=== PATIENT | female | born 1955 | race Caucasian/White ===

== ENCOUNTER → 2017-02-12 | Outpatient (CLI) | payer BC ==
[~2017-02-12] MED LIST: CALC-338 PO; CHOL100010 PO; COEN1CAP37 PO; GLUC1TAB94 PO; LYSI500C2 PO; MAGN250T3 PO; MULTTAB45 PO
== END | disposition home or self-care (01) ==
LOC: C.LABBC 15:13
DX: M81.0 Age-related osteoporosis without current pathological fracture (principal)

== ENCOUNTER 2017-03-12 13:02 | Emergency (ER) | payer BC ==
[~2017-03-12] VITALS: Ht 165.1 cm; Wt 58.0 kg
[~2017-03-12 13:02] MED LIST changes: -CHOL100010 PO; -GLUC1TAB94 PO; -MAGN250T3 PO
[2017-03-12 13:05] VITALS: TEMP 36.6; Ht 165.1 cm; Wt 58.0 kg
[2017-03-12 13:22] VITALS: O2SAT 96
[2017-03-12] MEDS ORDERED: GLUC1TAB94 PO (13:24)
[2017-03-12] MEDS ORDERED: CHOL100010 PO (13:24)
[2017-03-12] MEDS ORDERED: MAGN250T3 PO (13:24)
--- NOTE | 2017-03-12 13:29 | EMERGENCY ROOM VISIT NOTE ---
History First contact with patient: 13:07 Chief Complaint: CHEST PAIN Stated Complaint: CHEST PAIN AND PRESSURE Nursing Triage Summary: Triage note: pt reports chest tightness and heaviness since 0400 today. pt reports shortness of breath. History of Present Illness The patient is a 62 year old female who presents to the Emergency Room with complaints of chest pain. The patient states that in the middle of the night last night, she developed a sharp pain in the center of her chest which woke her up from sleep. She states the pain radiated into the left side of the chest. She took a baby aspirin and went back to bed, but states that she still "didn't feel right." She states that when she had the pain, and was worse with a deep breath. It did not radiate into her jaw or arm. She states that when she woke up 2 hours later, the pain had resolved. She states that she still has a heavy feeling in the center of her chest. She denies any shortness of breath at this time, but does state that she is nervous to take a deep breath because she is afraid the pain will return. The patient states that she has a history of arrhythmia but is unsure what this arrhythmia is. She denies any significant medical problems and does not take any medications on a daily basis. She states that her father had congenital heart disease and had a heart attack in his 80s. She denies any history of heart disease in her mother's side of the family. She does not smoke. She denies any nausea/vomiting, diaphoresis, abdominal pain, fevers or recent illness. Review of Systems A complete 10 point review of systems was reviewed with the patient with pertinent positives and negatives as per history of present illness. All else were negative. Past Medical/Surgical History Medical Problems: (1) Facial contusion (2) Hyperlipidemia Nec/Nos Family History Cancer Heart disease Social History Smoking Status: Never Smoker Marital Status: Housing Status: lives with family Current/Historical Medications Scheduled Calcium Citrate-Vitamin D (Citracal/Vitamin D), 1 TAB PO QAM Cholecalciferol (Vitamin D), 1,000 INTER.UNIT PO QAM Coenzyme Q10 (Ubidecarenone) (Co Q-10), 200 MG PO QAM Bxnvtuelbvo-Oxgmtkikrju-Hrbkbn (Move Free Joint Health Ad), 1 TAB PO DAILY Lysine (Lysine), 500 MG PO QAM Magnesium (Magnesium 250 mg), 250 MG PO QAM Multiple Vitamin (Multiple Vitamin), 1 TAB PO QAM Allergies Coded Allergies: Morphine (Verified Allergy, Unknown, VOMITING, 03/12/17) Physical Exam Vital Signs Date Time Temp Pulse Resp B/P Pulse Ox O2 Delivery O2 Flow Rate FiO2 03/12/17 15:22 86 20 126/78 98 Room Air 03/12/17 14:23 80 18 117/76 97 Room Air 03/12/17 13:22 96 Room Air 03/12/17 13:17 82 03/12/17 13:05 36.6 84 18 142/78 96 Room Air Physical Exam VITALS: Vitals are noted on the nurse's note and reviewed by myself. Vital signs stable. GENERAL: This is a 62-year-old female, in no acute distress, nondiaphoretic, well-developed well-nourished. SKIN: Capillary reflex less than 2 seconds. HEENT: Normocephalic. PERRLA. EOMI. Nares patent. Mucous membranes moist. Neck is supple without nuchal rigidity. HEART: Regular rate and rhythm without murmurs gallops or rubs. LUNGS: Clear to auscultation bilaterally without wheezes, rales or rhonchi. No retractions or accessory muscle use. MUSCULOSKELETAL: No reproducible tenderness on palpation. NEURO: Patient was alert and oriented to person place and time. Medical Decision & Procedures ER Provider Diagnostic Interpretation: CHEST ONE VIEW PORTABLE CLINICAL HISTORY: chest pain dyspnea COMPARISON STUDY: 08/30/2014 FINDINGS: The bones soft tissues and hemidiaphragms are normal. The cardiomediastinal silhouette is normal. The lungs are clear. The pulmonary vasculature is normal. IMPRESSION: Negative chest. Laboratory Results 03/12/17 13:15 Red Blood Count 4.45, Mean Corpuscular Volume 93.3, Mean Corpuscular Hemoglobin 32.1, Mean Corpuscular Hemoglobin Concent 34.5, Mean Platelet Volume 9.9, Neutrophils (%) (Auto) 59.3, Lymphocytes (%) (Auto) 30.8, Monocytes (%) (Auto) 7.9, Eosinophils (%) (Auto) 1.1, Basophils (%) (Auto) 0.7, Neutrophils # (Auto) 3.30, Lymphocytes # (Auto) 1.71, Monocytes # (Auto) 0.44, Eosinophils # (Auto) 0.06, Basophils # (Auto) 0.04 03/12/17 13:15 Test 03/12/17 13:15 03/12/17 13:21 03/12/17 14:53 White Blood Count 5.56 K/uL (4.8-10.8) Red Blood Count 4.45 M/uL (4.2-5.4) Hemoglobin 14.3 g/dL (12.0-16.0) Hematocrit 41.5 % (37-47) Mean Corpuscular Volume 93.3 fL (80-100) Mean Corpuscular Hemoglobin 32.1 pg (25-34) Mean Corpuscular Hemoglobin Concent 34.5 g/dl (32-36) Platelet Count 220 K/uL (130-400) Mean Platelet Volume 9.9 fL (7.4-10.4) Neutrophils (%) (Auto) 59.3 % Lymphocytes (%) (Auto) 30.8 % Monocytes (%) (Auto) 7.9 % Eosinophils (%) (Auto) 1.1 % Basophils (%) (Auto) 0.7 % Neutrophils # (Auto) 3.30 K/uL (1.4-6.5) Lymphocytes # (Auto) 1.71 K/uL (1.2-3.4) Monocytes # (Auto) 0.44 K/uL (0.11-0.59) Eosinophils # (Auto) 0.06 K/uL (0-0.5) Basophils # (Auto) 0.04 K/uL (0-0.2) RDW Standard Deviation 44.1 fL (36.4-46.3) RDW Coefficient of Variation 12.9 % (11.5-14.5) Immature Granulocyte % (Auto) 0.2 % Immature Granulocyte # (Auto) 0.01 K/uL (0.00-0.02) Prothrombin Time 10.5 SECONDS (9.0-12.0) Prothromb Time International Ratio 1.0 (0.9-1.1) Activated Partial Thromboplast Time 27.1 SECONDS (21.0-31.0) Partial Thromboplastin Ratio 1.0 Anion Gap 6.0 mmol/L (3-11) Est Creatinine Clear Calc Drug Dose 68.2 ml/min Estimated GFR () 96.8 Estimated GFR (Non- 83.5 BUN/Creatinine Ratio 19.4 (10-20) Calcium Level 8.8 mg/dl (8.5-10.1) Total Bilirubin 0.5 mg/dl (0.2-1) Aspartate Amino Transf (AST/SGOT) 14 U/L (15-37) Alanine Aminotransferase (ALT/SGPT) 25 U/L (12-78) Alkaline Phosphatase 44 U/L (45-117) Total Creatine Kinase 92 U/L (26-192) Creatine Kinase MB 1.4 ng/ml (0.5-3.6) Creatine Kinase MB Ratio 1.5 (0-3.0) Total Protein 6.9 gm/dl (6.4-8.2) Albumin 3.8 gm/dl (3.4-5.0) Globulin 3.1 gm/dl (2.5-4.0) Albumin/Globulin Ratio 1.2 (0.9-2) Bedside D-Dimer 226 ng/mlFEU (0-450) Bedside Troponin I 0.000 ng/ml (0-0.045) ECG Rate (beats per minute): 82 Rhythm: normal sinus Findings: no acute ischemic change, no ectopy Change: no significant change (no significant change from 07/13) ED Course The patient was evaluated as above. Labs were drawn and IV access was obtained. Patient was reevaluated and findings were discussed. I had a lengthy discussion with the patient regarding her findings and treatment plan. The patient would like to be discharged home if possible. Discharge instructions were reviewed with the patient. The patient verbalized understanding of my assessment and treatment plan and was discharged home in good condition. Medical Decision Differential diagnosis includes acute coronary syndrome, pulmonary embolism, pneumothorax, pericarditis, myocarditis, endocarditis, anxiety, musculoskeletal pain, GERD, costochondritis, pneumonia, among others. The patient is a 62-year-old female who presents today complaining of chest pain which has resolved. Labs revealed no leukocytosis, anemia or concerning electrolyte abnormalities. Thrhu-ax-lvlo troponin was negative. Troponin 2 were negative. Chest x-ray was unremarkable. EKG showed no acute ischemic changes. Other than the patient's age, she has no significant risk factors for cardiac disease. Her symptoms occurred fairly early this morning and I certainly would expect an elevation of the troponin is a were due to acute coronary syndrome. I do feel that the patient should have a stress test, but it is reasonable that this be performed as an outpatient. The patient will like to be discharged home and I think this is fine if the patient will follow-up with primary care provider within 48 hours. The patient was agreeable to this. The patient's case was reviewed with Dr. Jeff, ED attending physician, who agreed with my assessment and treatment plan. Based on the patient's presentation and work up, I feel the patient is stable for outpatient treatment. The patient was educated to return to the emergency department for any worsening of their current condition or new/concerning symptoms. She will follow up with her PCP for further testing. Impression Primary Impression: Retrosternal chest pain Departure Information Dispostion Home / Self-Care Condition GOOD Referrals Reinaldo Donis Jr,D.O. (PCP) Patient Instructions My [facility] Additional Instructions You have been treated in the Emergency Department for your Chest Pain. Laboratory results and Imaging Studies have ruled out any acute cardiac or pulmonary cause of your chest pain. For pain control, you can use the following jdbd-dfr-haddrpg medicines (if >12 yo): - Regular strength (325mg/tab) Tylenol (acetaminophen) 2 tabs every 4-6 hours as needed. Do not exceed 12 tablets in a 24 hour period. Avoid taking more than 4 grams (4000 mg) of Tylenol per day. This includes any other sources of acetaminophen you may take on a regular basis. - Regular strength (200 mg/tab) Advil (ibuprofen) 1-2 tabs every 4-6 hours as needed. Do not exceed a dose of 3[address] mg per day[address] Dr. Donis today or tomorrow to schedule follow up and a stress test. Return to the Emergency Department if your current symptoms worsen despite treatment course outlined above, or if you develop any of the following symptoms : worsening chest pain, associated jaw/arm pain, nausea, dizziness, shortness of breath, bloody cough, or fainting.
[2017-03-12 13:48] LABS: BASO % 0.7 %; BASO ABS # 0.04 K/uL (0-0.2); COMPLETE YES; EOS % 1.1 %; HEMATOCRIT 41.5 % (37-47); IG% 0.2 %; LYMPH % 30.8 %; LYMPH ABS # 1.71 K/uL (1.2-3.4); MEAN CELL VOLUME 93.3 fL (80-100); MEAN CORPUSCULAR HEMOGLOBIN 32.1 pg (25-34); MEAN CORPUSCULAR HGB CONC 34.5 g/dl (32-36); MEAN PLATELET VOLUME 9.9 fL (7.4-10.4); MONO % 7.9 %; NEUT % 59.3 %; PLATELET COUNT 220 K/uL (130-400); RED BLOOD COUNT 4.45 M/uL (4.2-5.4); WHITE BLOOD COUNT 5.56 K/uL (4.8-10.8)
--- NOTE | 2017-03-12 13:53 | DIAGNOSTIC IMAGING REPORT ---
CHEST ONE VIEW PORTABLE CLINICAL HISTORY: chest pain dyspnea COMPARISON STUDY: 08/30/2014 FINDINGS: The bones soft tissues and hemidiaphragms are normal. The cardiomediastinal silhouette is normal. The lungs are clear. The pulmonary vasculature is normal. IMPRESSION: Negative chest. Electronically signed by: Georges Hurtado M.D. 03/12/2017 1:51 PM Dictated Date/Time: 03/12/2017 1:51 PM
[2017-03-12 13:56] LABS: PROTHROMBIN TIME (PATIENT) 10.5 SECONDS (9.0-12.0)
[2017-03-12 14:07] LABS: BUN/CREATININE RATIO 19.4 (10-20); CALCIUM 8.8 mg/dl (8.5-10.1); CREATININE 0.76 mg/dl (0.60-1.20); POTASSIUM 3.7 mmol/L (3.5-5.1)
[2017-03-12 14:11] LABS: ALB/GLOB RATIO 1.2 (0.9-2); CKMB/CK RATIO 1.5 (0-3.0)
[2017-03-12 15:22] VITALS: BP 126/78; PULSE 86; O2SAT 98
== END 2017-03-12 15:35 | disposition home or self-care (01) ==
LOC: C.EDB 13:03
DX: R07.2 Precordial pain (principal); Z82.49 Family history of ischemic heart disease and other diseases of the circulatory system; Z82.79 Family history of other congenital malformations, deformations and chromosomal abnormalities

== ENCOUNTER → 2017-07-08 | Outpatient (CLI) | payer BC ==
[~2017-07-08] MED LIST changes: +CHOL100010 PO; +GLUC1TAB94 PO; +MAGN250T3 PO
--- NOTE | 2017-07-08 12:41 | DIAGNOSTIC IMAGING REPORT ---
CHEST 2 VIEWS ROUTINE CLINICAL HISTORY: ARRHYTHMIA cardiac arrhythmia COMPARISON STUDY: 03/12/2017 FINDINGS: The bones soft tissues and hemidiaphragms are normal. The cardiomediastinal silhouette is normal. The lungs are clear. The pulmonary vasculature is normal. IMPRESSION: Negative chest. The above report was generated using voice recognition software. It may contain grammatical, syntax or spelling errors. Electronically signed by: Georges Hurtado M.D. 07/08/2017 12:40 PM Dictated Date/Time: 07/08/2017 12:39 PM
[2017-07-08 13:47] LABS: BASO % 0.7 %; BASO ABS # 0.04 K/uL (0-0.2); COMPLETE YES; EOS % 1.9 %; HEMATOCRIT 40.1 % (37-47); IG% 0.2 %; LYMPH % 22.9 %; LYMPH ABS # 1.31 K/uL (1.2-3.4); MEAN CELL VOLUME 93.9 fL (80-100); MEAN CORPUSCULAR HEMOGLOBIN 32.3 pg (25-34); MEAN CORPUSCULAR HGB CONC 34.4 g/dl (32-36); MEAN PLATELET VOLUME 10.2 fL (7.4-10.4); MONO % 9.1 %; NEUT % 65.2 %; PLATELET COUNT 222 K/uL (130-400); RED BLOOD COUNT 4.27 M/uL (4.2-5.4); WHITE BLOOD COUNT 5.71 K/uL (4.8-10.8)
[2017-07-08 14:10] LABS: BLOOD UREA NITROGEN 15 mg/dl (7-18); BUN/CREATININE RATIO 21.4 (10-20); CALCIUM 9.5 mg/dl (8.5-10.1); CARBON DIOXIDE 28 mmol/L (21-32); CHLORIDE 106 mmol/L (98-107); CREATININE 0.72 mg/dl (0.60-1.20); GLUCOSE 86 mg/dl (70-99); MAGNESIUM 2.4 mg/dl (1.8-2.4); SODIUM 139 mmol/L (136-145)
[2017-07-08 14:20] LABS: CKMB/CK RATIO 1.8 (0-3.0)
== END | disposition home or self-care (01) ==
LOC: C.RADBC 12:18
DX: I49.9 Cardiac arrhythmia, unspecified (principal)

== ENCOUNTER → 2017-07-10 | Outpatient (CLI) | payer BC ==
[~2017-07-10] MED LIST changes: +PERFLUTREN LIPID MICROSPHERE (DEFINITY) IV ONE
--- NOTE | 2017-07-10 14:50 | DOBUTAMINE ECHO ---
*NOTICE TO RECEIVING LIBERTARIAN AGENCY This information is strictly Confidential and protected under [place] law. [place] law prohibits you from making any further disclosure of this information unless further disclosure is expressly permitted by the written consent of the person to whom it pertains or is authorized by law. A general authorization for the release of medical or other information is not sufficient for this purpose. Hospital accepts no responsibility if the information is made available to any other person, INCLUDING THE PATIENT. Interpretation Summary * Name: YOLA LIRIANO Study Date: 07/10/2017 11:49 AM * Patient Location: [facility] HR: 64 * : 1955 (M/d/yyyy) Gender: Female Height: 65 in * Age: 62 yrs Ethnicity: [place] Weight: 125 lb * Ordering Physician: Reinaldo Donis * Referring Physician: Reinaldo Donis D.O. * Performed By: Iesha Becerra RCS * * Reason For Study: Dizziness, sob * BSA: 1.6 m2 * This was a normal stress echocardiogram. * The stress echocardiogram is negative for inducible ischemia. * The stress ECG response was normal * Exercise capacity is above average. * STRESS STUDY: Normal exercise stress echocardiogram. No echocardiographic or ECG evidence of myocardial ischemia having achieved heart rate adequate for diagnostic purposes. Procedure Details * A contrast injection of Definity was performed to improve assessment of LV function. * Contrast was injected into an intravenous site in the right arm. * One vial of Definity ultrasound contrast was diluted in normal saline to a total volume of 10 ml. A total of '5' ml of solution was administered during imaging. * Lot # [id number] of Definity utilized for procedure. * Expiration date . * The attending nurse who injected the contrast agent was Amanda Gonzalez RN. Left Ventricle * The left ventricle is normal in size. * There is normal left ventricular wall thickness. * Ejection Fraction = >70 %. * The left ventricle is hyperdynamic. * Resting wall motion: Normal. Stress wall motion: Appropriate increase in Left ventricular systolic function and decrease in cavity size. No stress induced segmental wall motion abnormalities. * The left ventricular ejection fraction increases normally with stress. The left ventricular end-systolic cavity size reduces post-stress (normal response). The left ventricular wall motion with stress is normal. Right Ventricle * The right ventricle is normal in size and function. Atria * The left atrial size is normal. * Right atrial size is normal. * No ASD detected; PFO is not assessed. Mitral Valve * The mitral valve is normal. * There is no mitral valve stenosis. * There is trace mitral regurgitation. Tricuspid Valve * The tricuspid valve is normal. * There is no tricuspid stenosis. * There is trace tricuspid regurgitation. Aortic Valve * The aortic valve opens well. * The aortic valve is not well visualized. * Aortic stenosis is absent. * No aortic regurgitation is present. Pulmonic Valve * The pulmonary valve is inadequately visualized, but the Doppler data is adequate for interpretation. * Pulmonic stenosis is absent. * There is no significant pulmonary regurgitation. Pericardium * There is no pericardial effusion. Stress Parameters * Normal baseline electrocardiogram. * The stress ECG response was normal * No arrhythmia were noted with stress. * The stress portion of this study was personally supervised by the undersigned interpreting physician. * Rest heart rate was '61' BPM. * Rest blood pressure was '109/66' * Maximum heart rate achieved was 157 bpm. * Maximum heart rate was 112 % of maximum age-predicted heart rate. * Maximum blood pressure was '162/68' * Total exercise time was '10:20' * Maximum exercise MET level achieved was '12.2' METS * Maximum treadmill speed was '4.2' miles per hour. * Maximum treadmill elevation was '16'% grade. * Exercise was terminated due to 'fatigue' * Normal blood pressure response to exercise. MMode 2D Measurements and Calculations RVDd 3.1 cm IVSd 0.64 cm LVIDd 4.3 cm LVIDs 2.2 cm LVPWd 0.88 cm IVS/LVPW 0.73 FS 49.2 % EDV(Teich) 84.1 ml ESV(Teich) 16.1 ml EF(Teich) 80.8 % EDV(cubed) 80.8 ml ESV(cubed) 10.6 ml EF(cubed) 86.9 % LV mass(C)d 99.6 grams LV mass(C)dI 61.5 grams/m\S\2 SV(Teich) 68.0 ml SI(Teich) 42.0 ml/m\S\2 SV(cubed) 70.2 ml SI(cubed) 43.3 ml/m\S\2 Ao root diam 2.9 cm Ao root area 6.7 cm\S\2 LVOT diam 1.9 cm LVOT area 2.9 cm\S\2 LVAd ap4 24.7 cm\S\2 LVLd ap4 7.1 cm EDV(MOD-sp4) 71.7 ml LVAs ap4 10.0 cm\S\2 LVLs ap4 5.5 cm ESV(MOD-sp4) 15.5 ml EF(MOD-sp4) 78.4 % LVAd ap2 22.2 cm\S\2 LVLd ap2 6.8 cm EDV(MOD-sp2) 62.7 ml LVAs ap2 10.0 cm\S\2 LVLs ap2 5.2 cm ESV(MOD-sp2) 16.7 ml EF(MOD-sp2) 73.4 % SV(MOD-sp4) 56.2 ml SI(MOD-sp4) 34.7 ml/m\S\2 SV(MOD-sp2) 46.0 ml SI(MOD-sp2) 28.4 ml/m\S\2 Doppler Measurements and Calculations MV E max blanca 70.3 cm/sec MV A max blanca 43.7 cm/sec MV E/A 1.6 MV dec time 0.22 sec Ao V2 max 114.0 cm/sec Ao max PG 5.2 mmHg Ao max PG (full) 0.65 mmHg SANDRA(V,A) 2.7 cm\S\2 SANDRA(V,D) 2.7 cm\S\2 LV V1 max PG 4.6 mmHg LV V1 max 106.7 cm/sec TR max blanca 236.7 cm/sec
== END | disposition home or self-care (01) ==
LOC: C.CPL 11:30
DX: I49.8 Other specified cardiac arrhythmias (principal); R94.31 Abnormal electrocardiogram [ECG] [EKG]; R07.89 Other chest pain; Z82.49 Family history of ischemic heart disease and other diseases of the circulatory system

== ENCOUNTER → 2017-07-22 | Outpatient (CLI) | payer BC ==
[~2017-07-22] MED LIST changes: -PERFLUTREN LIPID MICROSPHERE (DEFINITY) IV ONE
== END | disposition home or self-care (01) ==
LOC: C.PAPS 15:07
PROVIDERS: ATTEND Obstetrics & Gynecology
DX: Z01.419 Encounter for gynecological examination (general) (routine) without abnormal findings (principal)